=== PATIENT | male | born 1930 | race Caucasian/White ===

== ENCOUNTER 2018-01-01 09:35 | Outpatient (CLI) | payer MEDICARE ==
[2018-01-01 11:00] LABS: Hemoglobin 13.9 g/dL (14.0-18.0); Mean Corpuscular HGB CONC 33.2 g/dL (32.0-36.0); Mean Corpuscular Hemoglobin 32.2 pg (27.0-31.0); Mean Corpuscular Volume 97.1 fL (78.0-98.0); Mean Platelet Volume 8.1 fL (7.4-10.4); Platelet Count 211 thou/uL (130-400); RBC Distribution Width 11.6 % (11.5-14.5); White Blood Cell (WBC) Count 6.3 thou/uL (4.8-10.8)
[2018-01-01 11:05] LABS: PTT 35.4 SEC (22.9-36.1); Prothrombin Time 13.5 SEC (12.0-14.7)
[2018-01-01 11:13] LABS: Anion Gap 9 mmol/L (10-20); BUN (Urea Nitrogen) 22 mg/dL (8.4-25.7); Calc. Creatinine Clearance 0 mL/min (70-130); Carbon Dioxide 31 mmol/L (23-31); Chloride 104 mmol/L (98-107); Estimated GFR-MDRD 59; Glucose 111 mg/dL (83-110); Potassium 4.4 mmol/L (3.5-5.1); Sodium 140 mmol/L (136-145)
--- NOTE | 2018-01-01 16:58 | EKG ---
Test Reason : Blood Pressure : / mmHG Vent. Rate : 043 BPM Atrial Rate : 057 BPM P-R Int : 000 ms QRS Dur : 094 ms QT Int : 472 ms P-R-T Axes : 000 018 046 degrees QTc Int : 398 ms Poor data quality, interpretation may be adversely affected Sinus bradycardia with A-V dissociation and Junctional bradycardia with Sinus/atrial capture suggest cardiology evaluation Abnormal ECG When compared with ECG of 11-JUL-2016 01:38, No significant change was found Confirmed by DR. Isra RUBIN (3) on 01/01/2018 4:57:07 PM Referred By: EDGAR Confirmed By:DR. Isra RUBIN
== END 2018-01-01 09:36 | disposition home or self-care (01) ==
LOC: LABBT 09:35
PROVIDERS: ATTEND Urology
DX: Z01.818 Encounter for other preprocedural examination (principal); D49.4 Neoplasm of unspecified behavior of bladder
CPT/HCPCS: 80048; 85027; 85610; 85730; 87086; 93005; 93010

== ENCOUNTER 2018-01-08 10:17 | Day surgery (SDC) | payer MEDICARE ==
[2018-01-01 10:01] VITALS: BMI 26.4
[2018-01-08] MEDS ORDERED: Fentanyl 100 MCG/2 ML VIAL ONE (10:47)
[2018-01-08] MEDS ORDERED: CEFAZOLIN 2 GM/50 ML BAG ONE (11:02)
--- NOTE | 2018-01-08 12:24 | OP ---
DATE OF PROCEDURE: 01/08/2018 PREOPERATIVE DIAGNOSIS: Recurrent bladder tumor. POSTOPERATIVE DIAGNOSIS: Recurrent bladder tumor. PROCEDURE PERFORMED: Cysto, TURBT. SURGEON: Nawaf Still M.D. ANESTHESIA: General. ESTIMATED BLOOD LOSS: Minimal. DRAINS: None. PATH SENT: Bladder tumor from right wall. FINDINGS: Half a centimeter papillary patch of tumors on the right wall, nothing near the ureteral o rifices. OPERATIVE TECHNIQUE: After obtaining written and verbal consent from the patient, he was taken to [facility] operating suite. He was placed in the supine position on the treatment table. PlexiPulses placed on his lower extremities and turned on. He was given a general anesthetic and oral obturator intubat ion. He was placed in the dorsal lithotomy position, sterilely prepped and draped. Cystoscopy was p erformed with a 22-Bulgarian sheath. This was well lubricated and advanced under direct vision through the male urethra into the urinary bladder with aid of a 30-degree lens, a video camera and monitor. The bladder was filled and emptied a number of times as it was examined with both the 30- and the 70- degree lens. Rather than using the gyrus, we used a cold cup biopsy forceps to completely remove thi s tumor and abnormal mucosa and sent these pieces off and then used electrocautery to cauterize the b ase and the surrounding mucosa. At this point, the bladder was drained and the instruments were adela danny. Alfredo catheter was not placed. He was taken out of the dorsal lithotomy position, awakened, ex tubated and taken by stretcher to the recovery room.
== END 2018-01-08 15:00 | disposition home or self-care (01) ==
LOC: SDC 10:17
PROVIDERS: ATTEND Urology
PROC: 0T5B8ZZ Destruction of Bladder, Via Natural or Artificial Opening Endoscopic (ICD-10-PCS; principal; 2018-01-08)
DX: C67.2 Malignant neoplasm of lateral wall of bladder (principal); K21.9 Gastro-esophageal reflux disease without esophagitis; I10 Essential (primary) hypertension; Z79.82 Long term (current) use of aspirin; Z79.899 Other long term (current) drug therapy
CPT/HCPCS: 88305; J3010

== ENCOUNTER 2018-05-19 17:35 | Emergency (ER) | payer MEDICARE | END 2018-05-19 18:30 | disposition home or self-care (01) | LOC: ERS 17:35 | DX: S80.862A Insect bite (nonvenomous), left lower leg, initial encounter (principal); I10 Essential (primary) hypertension; Z79.899 Other long term (current) drug therapy; W57.XXXA Bitten or stung by nonvenomous insect and other nonvenomous arthropods, initial encounter | CPT/HCPCS: 99283 ==

== ENCOUNTER 2018-12-03 09:28 | Outpatient (CLI) | payer MEDICARE ==
[2018-12-03 11:08] LABS: Hemoglobin 13.5 g/dL (14.0-18.0); Mean Corpuscular HGB CONC 33.7 g/dL (32.0-36.0); Mean Corpuscular Hemoglobin 32.9 pg (27.0-31.0); Mean Corpuscular Volume 97.6 fL (78.0-98.0); Mean Platelet Volume 8.6 fL (7.4-10.4); Platelet Count 190 thou/uL (130-400); RBC Distribution Width 12.6 % (11.5-14.5); Red Blood Cell (RBC) Count 4.11 mill/uL (4.70-6.10); White Blood Cell (WBC) Count 6.4 thou/uL (4.8-10.8)
[2018-12-03 11:12] LABS: PTT 35.8 SEC (22.9-36.1); Prothrombin Time 13.2 SEC (12.0-14.7)
[2018-12-03 11:28] LABS: Anion Gap 10 mmol/L (10-20); BUN (Urea Nitrogen) 23 mg/dL (8.4-25.7); Calc. Creatinine Clearance 0 mL/min (70-130); Carbon Dioxide 28 mmol/L (23-31); Chloride 107 mmol/L (98-107); Estimated GFR-MDRD 67; Glucose 92 mg/dL (83-110); Potassium 4.5 mmol/L (3.5-5.1); Sodium 140 mmol/L (136-145)
== END 2018-12-03 09:29 | disposition home or self-care (01) ==
LOC: LABBT 09:28
PROVIDERS: ATTEND Urology
DX: Z01.818 Encounter for other preprocedural examination (principal); D49.4 Neoplasm of unspecified behavior of bladder
CPT/HCPCS: 80048; 85027; 85610; 85730; 93005; 93010

== ENCOUNTER 2018-12-10 06:29 | Day surgery (SDC) | payer MEDICARE ==
[2018-12-03 10:06] VITALS: BMI 26.4
[2018-12-10] MEDS ORDERED: Fentanyl 100 MCG/2 ML VIAL ONE (08:52)
--- NOTE | 2018-12-10 14:55 | OP ---
DATE OF PROCEDURE: 12/10/2018 PREOPERATIVE DIAGNOSIS: Recurrent bladder tumors. POSTOPERATIVE DIAGNOSIS: Recurrent bladder tumors. PROCEDURES PERFORMED: Cystoscopy, transurethral resection of bladder tumors. ANESTHESIA: General. ESTIMATED BLOOD LOSS: Minimal. FINDINGS: He had a group of small papillary tumors lateral and behind the right ureteral orifice, probably a centimeter and half in total volume. Do not resect these. They all look superficial and he has had a long history of noninvasive superficial bladder tumors. We used the resectoscope with the resectoscope loop, but used this just to fulgurate and then knocked off these tumors from the bladder wall. DESCRIPTION OF PROCEDURE: After obtained written and verbal consent from the patient, he was taken to the operating suite. He was placed in the supine position on the treatment table. He was given a general anesthetic and oral obturator intubation. He was placed in the dorsal lithotomy position and sterilely prepped and draped. Cystoscopy was performed and with a 30-degree lens and video camera and monitor, 22-Georgian sheath, this was well lubricated and passed under direct vision through the male urethra and into the urinary bladder. The bladder was filled and emptied number of times. It was examined with both the 30-degree and the 70-degree lens. We then brought in a 24-Georgian resectoscope sheath with visual obturator using a 30-degree lens, passed it through the male urethra and into the bladder. We used a bladder tumor loop and the Gyrus generator and an Haro to fulgurate the bladder tumors around the right ureteral orifice and then used the loop to knock off the fulgurated tumors. Once this was completed and there was good hemostasis, the bladder was drained. The instruments were removed. He was taken out of the dorsal lithotomy position. The catheter was not left indwelling. He was awakened and extubated, taken by angy to recovery room. Job ID: [id number]
== END 2018-12-10 11:30 | disposition home or self-care (01) ==
LOC: SDC 06:29
PROVIDERS: ATTEND Urology
PROC: 0T5B8ZZ Destruction of Bladder, Via Natural or Artificial Opening Endoscopic (ICD-10-PCS; principal; 2018-12-10)
DX: D49.4 Neoplasm of unspecified behavior of bladder (principal); I10 Essential (primary) hypertension; Z79.1 Long term (current) use of non-steroidal anti-inflammatories (NSAID); Z79.82 Long term (current) use of aspirin; Z79.899 Other long term (current) drug therapy
CPT/HCPCS: 93005; 93010; J0690; J3010

== ENCOUNTER 2019-01-21 06:21 | Outpatient (CLI) | payer MEDICARE ==
[2019-01-21 11:28] LABS: Hemoglobin 14.2 g/dL (14.0-18.0); Mean Corpuscular HGB CONC 33.2 g/dL (32.0-36.0); Mean Corpuscular Hemoglobin 32.6 pg (27.0-31.0); Mean Corpuscular Volume 98.2 fL (78.0-98.0); Mean Platelet Volume 8.8 fL (7.4-10.4); Platelet Count 192 thou/uL (130-400); RBC Distribution Width 11.9 % (11.5-14.5); Red Blood Cell (RBC) Count 4.35 mill/uL (4.70-6.10); White Blood Cell (WBC) Count 6.2 thou/uL (4.8-10.8)
[2019-01-21 11:29] LABS: PTT 34.7 SEC (22.9-36.1)
[2019-01-21 12:39] LABS: Anion Gap 10 mmol/L (10-20); BUN (Urea Nitrogen) 19 mg/dL (8.4-25.7); Calc. Creatinine Clearance 0 mL/min (70-130); Calcium 9.2 mg/dL (7.8-10.44); Carbon Dioxide 29 mmol/L (23-31); Chloride 105 mmol/L (98-107); Estimated GFR-MDRD 59; Glucose 85 mg/dL (83-110); Sodium 140 mmol/L (136-145)
--- NOTE | 2019-01-22 14:10 | EKG ---
Test Reason : Blood Pressure : / mmHG Vent. Rate : 046 BPM Atrial Rate : 075 BPM P-R Int : 000 ms QRS Dur : 094 ms QT Int : 460 ms P-R-T Axes : 000 024 052 degrees QTc Int : 402 ms Sinus rhythm with complete heart block and Junctional rhythm with Sinus/atrial capture Abnormal ECG When compared with ECG of 10-DEC-2018 09:44, Junctional rhythm has replaced Sinus rhythm Confirmed by NAYE SADLER, SSherwin (4) on 01/22/2019 2:09:46 PM Referred By: [facility] Confirmed By:DR. Steven YANCEY MD
== END 2019-01-21 06:22 | disposition home or self-care (01) ==
LOC: LABBT 06:21
PROVIDERS: ATTEND Internal Medicine Cardiovascular Disease
DX: Z01.818 Encounter for other preprocedural examination (principal); R00.1 Bradycardia, unspecified
CPT/HCPCS: 80048; 85027; 85610; 85730; 93005; 93010

== ENCOUNTER 2019-01-23 05:56 | Day surgery (SDC) | payer MEDICARE ==
[2019-01-21 09:17] VITALS: BMI 27.1
[2019-01-23] MEDS ORDERED: Lidocaine 1% (PF) 30 ML VIAL ONE (06:53)
--- NOTE | 2019-01-23 08:32 | CT ---
EXAM: CT brain without contrast HISTORY: Fall at home. Preoperative examination prior to surgery. COMPARISON: 09/14/2010 TECHNIQUE: Multiple contiguous axial images were obtained and a CT of the brain without contrast. FINDINGS: The brain is normal in morphology and attenuation without focal lesions or confluent areas of infarction. There is no evidence of hydrocephalus, intracranial hemorrhage, or extra-axial fluid collection. The calvarium and overlying soft tissues are unremarkable. The visualized paranasal sinuses and masto id air cells are well aerated. IMPRESSION: No evidence of acute intracranial abnormality
[2019-01-23] MEDS ORDERED: PROPOFOL 20 ML ONE (10:04)
[2019-01-23] MEDS ORDERED: Fentanyl 100 MCG/2 ML VIAL ONE (11:18)
--- NOTE | 2019-01-23 12:22 | RAD ---
CHEST ONE VIEW: HISTORY: Rales in right base. COMPARISON: 04/17/2018 FINDINGS: Postop midline sternotomy. Left ICD. Borderline cardiomegaly. Somewhat less than optimal inspiration. Mild bilateral vascular congestion. No confluent pneumonia, overt edema or pleural effusion. IMPRESSION: Less than optimal inspiration with some borderline cardiomegaly and mild vascular congestion without other acute process. POS: OFF
[2019-01-23] MEDS ORDERED: Acetaminophen 500 MG TAB ONE (13:59)
[2019-01-23] MEDS ORDERED: Sodium Chloride 0.9% 20 ML ONE (14:56)
--- NOTE | 2019-01-23 18:49 | EKG ---
Test Reason : Blood Pressure : / mmHG Vent. Rate : 060 BPM Atrial Rate : 060 BPM P-R Int : 000 ms QRS Dur : 140 ms QT Int : 494 ms P-R-T Axes : 000 006 084 degrees QTc Int : 494 ms AV sequential or dual chamber electronic pacemaker When compared with ECG of 21-JAN-2019 09:51, Electronic ventricular pacemaker has replaced Junctional rhythm Confirmed by NAYE SADLER, DR. Harris ([id number]) on 01/23/2019 6:49:07 PM Referred By: [facility] Confirmed By:DR. Steven YANCEY MD
== END 2019-01-23 15:55 | disposition home or self-care (01) ==
LOC: CCL 05:56
PROVIDERS: ATTEND Internal Medicine Cardiovascular Disease
PROC: 0JH606Z Insertion of Pacemaker, Dual Chamber into Chest Subcutaneous Tissue and Fascia, Open Approach (ICD-10-PCS; principal; 2019-01-23)
PROC: 02H63JZ Insertion of Pacemaker Lead into Right Atrium, Percutaneous Approach (ICD-10-PCS; 2019-01-23)
PROC: 02HK3JZ Insertion of Pacemaker Lead into Right Ventricle, Percutaneous Approach (ICD-10-PCS; 2019-01-23)
PROC: 02H43JZ Insertion of Pacemaker Lead into Coronary Vein, Percutaneous Approach (ICD-10-PCS; 2019-01-23)
DX: I44.2 Atrioventricular block, complete (principal); I48.0 Paroxysmal atrial fibrillation; I49.5 Sick sinus syndrome; I25.10 Atherosclerotic heart disease of native coronary artery without angina pectoris; I10 Essential (primary) hypertension; E78.5 Hyperlipidemia, unspecified; K21.9 Gastro-esophageal reflux disease without esophagitis; N40.0 Benign prostatic hyperplasia without lower urinary tract symptoms; M19.90 Unspecified osteoarthritis, unspecified site; Z85.51 Personal history of malignant neoplasm of bladder; Z79.82 Long term (current) use of aspirin; Z79.899 Other long term (current) drug therapy; Z97.4 Presence of external hearing-aid; Z95.1 Presence of aortocoronary bypass graft
CPT/HCPCS: 33208; 33225; 36005; 70450; 71045; 75820; 93005; 93010; C1882; C1898; J0690; J2001; J2704; J3010; J3490